=== PATIENT | female | born 1980 | race Caucasian/White ===

== ENCOUNTER 2018-11-17 13:47 | Emergency (ER) | payer MEDICAID ==
[~2018-11-17] VITALS: Ht 160 cm; Wt 55.4 kg
[2018-11-17] MEDS: SODIUM CHLORIDE 0.9% 1,000ML IVBOLUS ONE ×2 (14:00→15:37)
[2018-11-17] MEDS ORDERED: SODIUM CHLORIDE FLUSH 10ML SYR IVF ONE (14:00)
--- NOTE | 2018-11-17 14:01 | NUR ---
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
[2018-11-17 14:17] LABS: BASOPHILS # (AUTO) 0.03 x10^3/uL (0-0.1); BASOPHILS % (AUTO) 0 % (0-1); EOSINOPHILS # (AUTO) 0.24 x10^3/uL (0-0.4); EOSINOPHILS % (AUTO) 3 % (1-7); LYMPHOCYTES # (AUTO) 1.61 x10^3/uL (1-3.4); LYMPHOCYTES % (AUTO) 21 % (22-44); MD NO; MEAN CORPUSCULAR HEMOGLOBIN 30.2 pg (27.0-34.8); MEAN CORPUSCULAR HGB CONC 33.4 g/dL (32.4-35.8); MEAN CORPUSCULAR VOLUME 90.4 fL (80-100); MEAN PLATELET VOLUME 7.9 fL (7.4-10.4); MONOCYTES # (AUTO) 0.44 x10^3/uL (0.2-0.8); MONOCYTES % (AUTO) 6 % (2-9); NEUTROPHILS # (AUTO) 5.28 x10^3/uL (1.8-6.8); NEUTROPHILS % (AUTO) 70 % (42-75); PLATELET COUNT 322 x10^3/uL (130-400); RED BLOOD COUNT 5.34 x10^6/uL (3.82-5.3); RED CELL DISTRIBUTION WIDTH 13.2 % (9.6-15.2)
[2018-11-17 14:28] LABS: ALANINE AMINOTRANSFERASE 15 U/L (12-78); ALBUMIN 3.3 g/dL (3.4-5.0); ANION GAP 6 mmol/L (5-15); CHLORIDE 98 mmol/L (98-107)
[2018-11-17 14:32] LABS: ALKALINE PHOSPHATASE 131 U/L (45-117); BILIRUBIN,TOTAL 0.2 mg/dL (0.2-1.0); TOTAL PROTEIN 6.5 g/dL (6.4-8.2)
--- NOTE | 2018-11-17 14:43 | NUR ---
PT TO ROOM FROM LOBBY
[2018-11-17 14:57] LABS: ACETONE, SERUM Small (20mg/dL) mg/dL (Negative)
--- NOTE | 2018-11-17 15:00 | NUR ---
FIRST CONTACT WITH PT. PT STATES " I DON'T FEEL GOOD AND HAVE NAUSEA SINCE YESTERDAY." PT AOX4. RESPS EVEN AND UNLABORED. PT HAS HX OF DM1. PT STATES LAST DOSE LANTUS 4 DAYS AGO. PT STATES "I USUALLY DON'T TAKE MY NOVOLOG BECAUSE I USUALLY DON'T EAT AND I DON'T HAVE A GLUCOMETER." BP/SPO2 MONITORS IN PLACE. CALL LIGHT WITHIN REACH.
--- NOTE | 2018-11-17 15:04 | NUR ---
EDMD AT BEDSIDE TO EXPLAIN POC AT THIS TIME.
[2018-11-17] MEDS ORDERED: FLUCONAZOLE 100 MG TABLET ONE (15:28)
[2018-11-17] MEDS ORDERED: INSULIN REGULAR 100 UNITS/ML, 3ML VIAL ONE (15:28)
[2018-11-17] MEDS ORDERED: FLUCONAZOLE 100 MG TABLET PO ONE (15:30)
--- NOTE | 2018-11-17 15:33 | NUR ---
PT AMB TO BR AND BACK TO ROOM WITH STEADY GAIT. UA SENT.
[2018-11-17 15:43] LABS: MICROSCOPIC NOT IND
[2018-11-17 15:47] LABS: CULTURE INDICATED? NO
[2018-11-17] MEDS ORDERED: ALBUTEROL SULFATE 2.5 MG/3 ML NPPB ONE (16:00)
[2018-11-17] MEDS ORDERED: INSULIN REGULAR 100 UNITS/ML, 3ML VIAL SQ-INSULIN SCH (16:00)
[2018-11-17] MEDS ORDERED: ALBUTEROL SULFATE 2.5 MG/3 ML ONE (16:09)
--- NOTE | 2018-11-17 16:46 | NUR ---
pt resting in [facility]. pt aox4. resps even and unlabored. bp/spo2 monitors in place. call light within reach.
--- NOTE | 2018-11-17 16:48 | NUR ---
yanely jaramillo and magy valdivia notified repeat bg is 470 taken by this rn; pt states she had 1/2 cup cheetos she brought from home approx 30 min ago. magy and yanely notified. verbal order received to repeat 1L ns bolus and recheck fingerstick bg 1 hr from now.
[2018-11-17] MEDS ORDERED: SODIUM CHLORIDE 0.9% 1,000ML IVBOLUS ONE ×2 (17:00→18:00)
[2018-11-17 18:03] VITALS: BP 97/55
--- NOTE | 2018-11-17 18:05 | NUR ---
PT RESTING IN [facility]. PT AOX4. RESPS EVEN AND UNLABORED. BP/SPO2 MONITORS IN [facility]. CALL LIGHT WITHIN REACH.
--- NOTE | 2018-11-17 18:31 | NUR ---
REPORT TO MELI MARTIN
== END 2018-11-17 19:07 | disposition home or self-care (01) ==
LOC: ED 18:02
DX: J98.01 Acute bronchospasm (principal); B37.3 Candidiasis of vulva and vagina; E11.65 Type 2 diabetes mellitus with hyperglycemia; F15.20 Other stimulant dependence, uncomplicated; Z90.710 Acquired absence of both cervix and uterus; Z90.49 Acquired absence of other specified parts of digestive tract
CPT/HCPCS: 36415; 71046; 80053; 81003; 82010; 82800; 82962; 84703; 85025; 94640; 96360; 96361; 96372; 99284; J7030; J7613

== ENCOUNTER 2018-12-12 09:30 | Inpatient (IN) | payer MEDICAID ==
[~2018-12-12] VITALS: Ht 160 cm; Wt 55.3 kg
[2018-12-12] MEDS ORDERED: SODIUM CHLORIDE 0.9% 1,000ML IVBOLUS ONE ×2 (10:00→11:00)
[2018-12-12] MEDS ORDERED: ONDANSETRON 2MG/ML, 2ML IVPush ONE (10:00)
[2018-12-12 10:18] LABS: FIO2 ROOM AIR %; PH, VENOUS 7.398 pH (7.320-7.420)
[2018-12-12 10:21] LABS: BASOPHILS % (AUTO) 0 % (0-1); EOSINOPHILS # (AUTO) 0.21 x10^3/uL (0-0.4); EOSINOPHILS % (AUTO) 2 % (1-7); LYMPHOCYTES # (AUTO) 1.21 x10^3/uL (1-3.4); LYMPHOCYTES % (AUTO) 12 % (22-44); MD NO; MEAN CORPUSCULAR HEMOGLOBIN 31.1 pg (27.0-34.8); MEAN CORPUSCULAR HGB CONC 34.3 g/dL (32.4-35.8); MEAN CORPUSCULAR VOLUME 90.7 fL (80-100); MEAN PLATELET VOLUME 7.7 fL (7.4-10.4); MONOCYTES # (AUTO) 0.36 x10^3/uL (0.2-0.8); MONOCYTES % (AUTO) 4 % (2-9); NEUTROPHILS # (AUTO) 8.37 x10^3/uL (1.8-6.8); NEUTROPHILS % (AUTO) 82 % (42-75); PLATELET COUNT 366 x10^3/uL (130-400); RED BLOOD COUNT 4.85 x10^6/uL (3.82-5.3); RED CELL DISTRIBUTION WIDTH 12.8 % (9.6-15.2)
[2018-12-12] MEDS ORDERED: ONDANSETRON 2MG/ML, 2ML ONE (10:31)
[2018-12-12 10:32] LABS: ALANINE AMINOTRANSFERASE 16 U/L (12-78); ALBUMIN 2.9 g/dL (3.4-5.0); ANION GAP 8 mmol/L (5-15); CALCIUM 8.2 mg/dL (8.5-10.1); CHLORIDE 92 mmol/L (98-107); CREATININE 0.81 mg/dL (0.55-1.02)
[2018-12-12 10:36] LABS: ALKALINE PHOSPHATASE 166 U/L (45-117); BILIRUBIN,TOTAL 0.4 mg/dL (0.2-1.0); TOTAL PROTEIN 6.4 g/dL (6.4-8.2)
--- NOTE | 2018-12-12 10:42 | NUR ---
LAB CALLED WITH CRITICAL GLUCOSSE 770 REPORT FROM RIKY IN LAB
[2018-12-12] MEDS ORDERED: INSULIN REGULAR 100 UNITS/ML, 3ML VIAL SQ-INSULIN ONE (11:00)
[2018-12-12 11:01] LABS: ACETONE, SERUM Large (80mg/dL) mg/dL (Negative)
[2018-12-12] MEDS ORDERED: INSULIN REGULAR 100 UNITS/ML, 3ML VIAL ONE (11:07)
--- NOTE | 2018-12-12 11:15 | NUR ---
PT MEDICATED WITH INSULIN FIRST NS 1000 INFUSING PT UP TO BATHROOM
--- NOTE | 2018-12-12 12:10 | NUR ---
FS 450 SECOND NS INFUSING
--- NOTE | 2018-12-12 12:43 | NUR ---
BLANKETS GIVEN, PT RESTING CRACKERS AN PB GIVEN
--- NOTE | 2018-12-12 13:25 | NUR ---
REPORT FROM REYES RODRIUGEZ
--- NOTE | 2018-12-12 13:26 | NUR ---
REPORT FROM REYES RODRIGUEZ
[2018-12-12] MEDS ORDERED: SODIUM CHLORIDE 0.9% 1,000 ML IV ONE (13:35)
[2018-12-12] MEDS ORDERED: SODIUM CHLORIDE FLUSH 10ML SYR IVF PRN (14:00)
--- NOTE | 2018-12-12 14:10 | NUR ---
ADMITTING MD IN WITH PATIENT
[2018-12-12 14:11] LABS: MICROSCOPIC NOT IND
[2018-12-12] MEDS ORDERED: ENALAPRILAT 1.25 MG/ML, 2ML IVPush PRN (14:30)
[2018-12-12] MEDS ORDERED: ACETAMINOPHEN 325 MG TABLET PO PRN (14:30)
[2018-12-12] MEDS ORDERED: hydrALAzine 20 MG/ML, 1ML IVPush PRN (14:30)
--- NOTE | 2018-12-12 14:30 | NUR ---
2ND LITER BOLUS COMPLETE. PATIENT GIVEN CRACKERS AND PEANUT BUTTER. PATIENT REQUESTS DIET TRAY
--- NOTE | 2018-12-12 14:40 | NUR ---
REPORT TO ABDON RODRIGUEZ
[2018-12-12 15:02] LABS: ANION GAP 3 mmol/L (5-15); CALCIUM 7.8 mg/dL (8.5-10.1); CHLORIDE 106 mmol/L (98-107)
[2018-12-12 15:11] LABS: THYROID STIMULATING HORMONE 0.937 mIU/L (0.358-3.740)
[2018-12-12] MEDS ORDERED: ALBUTEROL SULFATE 2.5 MG/3 ML NPPB PRN (15:30)
[2018-12-12 16:00] VITALS: BP 94/58
[2018-12-12] MEDS: INSULIN LISPRO 100 UNITS/ML, PEN SQ-INSULIN SCH ×2 (16:00→22:05)
[2018-12-12] MEDS: SODIUM CHLORIDE 0.9% 1,000 ML IV SCH ×2 (16:46→23:52)
[2018-12-12] MEDS: BENZONATATE 100 MG CAPSULE PO SCH ×2 (16:46→22:05)
[2018-12-12] MEDS ORDERED: DOXYCYCLINE 100MG CAP ONE (16:57)
[2018-12-12] MEDS ORDERED: INSULIN LISPRO 100 UNITS/ML, PEN SQ-INSULIN ONE ×2 (17:00→19:00)
[2018-12-12] MEDS ORDERED: DOXYCYCLINE 100MG TABLET PO ONE (17:00)
[2018-12-12 19:04] VITALS: BP 105/69
[2018-12-12] MEDS: GUAIFENESIN ER 600 MG TABLET PO SCH (22:05)
[2018-12-12] MEDS: INSULIN GLARGINE 100 UNITS/ML, PEN SQ-INSULIN SCH (22:05)
[2018-12-13 01:24] VITALS: BP 112/75
[2018-12-13 05:28] LABS: BASOPHILS # (AUTO) 0.03 x10^3/uL (0-0.1); BASOPHILS % (AUTO) 0 % (0-1); EOSINOPHILS # (AUTO) 0.27 x10^3/uL (0-0.4); EOSINOPHILS % (AUTO) 3 % (1-7); LYMPHOCYTES # (AUTO) 2.03 x10^3/uL (1-3.4); LYMPHOCYTES % (AUTO) 19 % (22-44); MD NO; MEAN CORPUSCULAR HEMOGLOBIN 30.9 pg (27.0-34.8); MEAN CORPUSCULAR HGB CONC 33.9 g/dL (32.4-35.8); MEAN CORPUSCULAR VOLUME 91.1 fL (80-100); MEAN PLATELET VOLUME 7.7 fL (7.4-10.4); MONOCYTES # (AUTO) 0.45 x10^3/uL (0.2-0.8); MONOCYTES % (AUTO) 4 % (2-9); NEUTROPHILS # (AUTO) 7.96 x10^3/uL (1.8-6.8); NEUTROPHILS % (AUTO) 74 % (42-75); PLATELET COUNT 298 x10^3/uL (130-400); RED CELL DISTRIBUTION WIDTH 12.7 % (9.6-15.2)
[2018-12-13 06:56] VITALS: BP 99/62
[2018-12-13 08:12] LABS: ANION GAP 9 mmol/L (5-15); CALCIUM 8.3 mg/dL (8.5-10.1); CHLORIDE 107 mmol/L (98-107); CREATININE 0.53 mg/dL (0.55-1.02)
[2018-12-13] MEDS: BENZONATATE 100 MG CAPSULE PO SCH ×3 (08:15→21:20)
[2018-12-13] MEDS: GUAIFENESIN ER 600 MG TABLET PO SCH ×2 (08:15→21:20)
[2018-12-13] MEDS: INSULIN LISPRO 100 UNITS/ML, PEN SQ-INSULIN SCH ×5 (08:17→21:19)
[2018-12-13] MEDS ORDERED: INSULIN GLARGINE 100 UNITS/ML, PEN SQ-INSULIN ONE (10:00)
[2018-12-13 12:51] VITALS: BP 105/62
[2018-12-13 19:10] VITALS: BP 109/68
[2018-12-13] MEDS: INSULIN GLARGINE 100 UNITS/ML, PEN SQ-INSULIN SCH (21:19)
[2018-12-14 01:30] VITALS: BP 115/76
[2018-12-14 06:53] VITALS: BP 114/80
[2018-12-14] MEDS ORDERED: INSULIN GLARGINE 100 UNITS/ML, PEN SQ-INSULIN SCH ×2 (08:00→21:00)
[2018-12-14] MEDS: GUAIFENESIN ER 600 MG TABLET PO SCH (08:37)
[2018-12-14] MEDS: BENZONATATE 100 MG CAPSULE PO SCH (08:37)
[2018-12-14] MEDS: INSULIN LISPRO 100 UNITS/ML, PEN SQ-INSULIN SCH (08:38)
[2018-12-14] MEDS ORDERED: GUAI600T31 PO (08:54)
[2018-12-14] MEDS ORDERED: INSU100I11 SQ-INSULIN (08:54)
[2018-12-14] MEDS ORDERED: INSU100I13 SQ-INSULIN (08:54)
[2018-12-14] MEDS ORDERED: DOXY100T PO (08:54)
[2018-12-14] MEDS ORDERED: BENZ-17 PO (08:54)
== END 2018-12-14 11:10 | disposition left against medical advice (07) | DRG 202 ==
LOC: ED 11:20 → EDIP 14:31 → 3NE 15:13
PROVIDERS: ADMIT Internal Medicine; ATTEND Internal Medicine
PROC: 0T9B70Z Drainage of Bladder with Drainage Device, Via Natural or Artificial Opening (ICD-10-PCS; principal; 2018-12-12)
DX: J40 Bronchitis, not specified as acute or chronic (principal); N13.30 Unspecified hydronephrosis; F15.20 Other stimulant dependence, uncomplicated; E87.1 Hypo-osmolality and hyponatremia; E10.65 Type 1 diabetes mellitus with hyperglycemia; F17.210 Nicotine dependence, cigarettes, uncomplicated; Z59.0 Homelessness; Z79.4 Long term (current) use of insulin; Z90.710 Acquired absence of both cervix and uterus; Z91.19 Patient's noncompliance with other medical treatment and regimen; E10.40 Type 1 diabetes mellitus with diabetic neuropathy, unspecified; Z53.21 Procedure and treatment not carried out due to patient leaving prior to being seen by health care provider
CPT/HCPCS: 36415; 84145; 99285; J7613; 71045; 76700; 80048; 80053; 81003; 82010; 82803; 82962; 83036; 83605; 83690; 83735; 84100; 84443; 84703; 85025; 94640; 96372; 96374; G0378; J2405; J1815; J7030

== ENCOUNTER 2019-03-17 11:43 | Emergency (ER) | payer MEDICAID ==
[~2019-03-17] VITALS: Ht 160 cm; Wt 63.6 kg
[~2019-03-17 11:43] MED LIST: BENZ-17 PO; DOXY100T PO; GUAI600T31 PO; INSU100I11 SQ-INSULIN; INSU100I13 SQ-INSULIN
[2019-03-17 12:31] LABS: PH, VENOUS 7.357 pH (7.320-7.420)
[2019-03-17 12:33] LABS: BASOPHILS # (AUTO) 0.01 x10^3/uL (0-0.1); BASOPHILS % (AUTO) 0 % (0-1); EOSINOPHILS # (AUTO) 0.27 x10^3/uL (0-0.4); EOSINOPHILS % (AUTO) 4 % (1-7); LYMPHOCYTES # (AUTO) 1.69 x10^3/uL (1-3.4); LYMPHOCYTES % (AUTO) 23 % (22-44); MD NO; MEAN CORPUSCULAR HEMOGLOBIN 30.5 pg (27.0-34.8); MEAN CORPUSCULAR HGB CONC 33.2 g/dL (32.4-35.8); MEAN CORPUSCULAR VOLUME 91.9 fL (80-100); MEAN PLATELET VOLUME 7.5 fL (7.4-10.4); MONOCYTES # (AUTO) 0.37 x10^3/uL (0.2-0.8); MONOCYTES % (AUTO) 5 % (2-9); NEUTROPHILS # (AUTO) 5.02 x10^3/uL (1.8-6.8); NEUTROPHILS % (AUTO) 68 % (42-75); PLATELET COUNT 234 x10^3/uL (130-400); RED BLOOD COUNT 5.02 x10^6/uL (3.82-5.3); RED CELL DISTRIBUTION WIDTH 12.4 % (9.6-15.2)
[2019-03-17 12:35] LABS: FIO2 ROOM AIR %
[2019-03-17 12:47] LABS: ALBUMIN 3.6 g/dL (3.4-5.0); ANION GAP 6 mmol/L (5-15); CALCIUM 9.2 mg/dL (8.5-10.1); CHLORIDE 102 mmol/L (98-107)
[2019-03-17 12:52] LABS: ALANINE AMINOTRANSFERASE 51 U/L (12-78); ALKALINE PHOSPHATASE 88 U/L (45-117); BILIRUBIN,TOTAL 0.3 mg/dL (0.2-1.0); CREATININE 0.66 mg/dL (0.55-1.02); TOTAL PROTEIN 6.9 g/dL (6.4-8.2)
--- NOTE | 2019-03-17 13:03 | NUR ---
pt to room from
--- NOTE | 2019-03-17 13:05 | NUR ---
urine sent to lab, pt resting in [facility]
[2019-03-17 13:28] LABS: MICROSCOPIC AUTO
[2019-03-17 13:28] LABS: ACETONE, SERUM Negative (Negative)
[2019-03-17 13:34] LABS: CULTURE INDICATED? YES
--- NOTE | 2019-03-17 14:04 | NUR ---
PT UP FOR RECHECK, ASKING FOR TYLENOL.
[2019-03-17 14:06] VITALS: BP 95/47
[2019-03-17] MEDS ORDERED: CEFTRIAXONE 1,000 MG ONE ×2 (14:13→14:19)
[2019-03-17] MEDS ORDERED: ACETAMINOPHEN 500 MG TABLET ONE (14:14)
[2019-03-17] MEDS ORDERED: CEFTRIAXONE 1,000 MG IM ONE (14:30)
[2019-03-17] MEDS ORDERED: ACETAMINOPHEN 500 MG TABLET PO ONE (14:30)
== END 2019-03-17 14:39 | disposition home or self-care (01) ==
LOC: ED 14:18
DX: N30.00 Acute cystitis without hematuria (principal); E11.9 Type 2 diabetes mellitus without complications; F17.200 Nicotine dependence, unspecified, uncomplicated
CPT/HCPCS: 36415; 76700; 80053; 81001; 82010; 82803; 83690; 84703; 85025; 87086; 96372; 99284; J0696; 82962

== ENCOUNTER 2019-05-25 13:04 | Inpatient (IN) | payer MEDICAID, MEDICARE ==
[~2019-05-25] VITALS: Ht 160 cm; Wt 60.7 kg
[2019-05-28 12:56] VITALS: BP 114/65
== END 2019-05-28 14:55 | disposition home or self-care (01) | DRG 638 ==
LOC: ED 16:27 → EDIP 16:28 → ED 17:23 → 3NE 18:34
PROVIDERS: ADMIT Internal Medicine; ATTEND Internal Medicine
DX: E10.10 Type 1 diabetes mellitus with ketoacidosis without coma (principal); E87.1 Hypo-osmolality and hyponatremia; R45.851 Suicidal ideations; N30.90 Cystitis, unspecified without hematuria; E83.39 Other disorders of phosphorus metabolism; E83.42 Hypomagnesemia; E86.0 Dehydration; F15.90 Other stimulant use, unspecified, uncomplicated; F17.210 Nicotine dependence, cigarettes, uncomplicated; Z59.0 Homelessness; Z79.4 Long term (current) use of insulin; Z90.710 Acquired absence of both cervix and uterus; Z91.14 Patient's other noncompliance with medication regimen; Z90.89 Acquired absence of other organs
CPT/HCPCS: 36415; 80053; 80307; 81001; 81025; 82010; 82962; 83605; 83690; 83735; 84100; 84439; 84443; 85025; 87040; 87070; 87086; 87205; 99285; G0378; J0696; J2405; J3475; C9113; J1815; J7030